=== PATIENT | male | born 1965 | race Caucasian/White ===

== ENCOUNTER → 2017-07-24 10:58 | Day surgery (SDC) | payer BC | END | disposition home or self-care (01) | LOC: OR 10:58 | PROVIDERS: ATTEND Anesthesiology | DX: G97.1 Other reaction to spinal and lumbar puncture (principal) | CPT/HCPCS: 62273 ==

== ENCOUNTER 2017-09-23 06:08 | Observation (INO) | payer BC ==
[~2017-09-23 06:08] MED LIST: Buffered Lidocaine 0.9% SYRIN* 5 ML/SYR SYRINGE INTRADERM ONE; Famotidine TAB* 20 MG PO ONE
[2017-09-23] MEDS ORDERED: ceFAZolin 2 GM PREMIX (*) 2 GM/50 ML BAG IVPB ONE (06:41)
[2017-09-23] MEDS ORDERED: Famotidine TAB* 20 MG ONE (06:41)
[2017-09-23] MEDS ORDERED: Lidocaine 1% MPF wEPI 200,000* 30 ML SDV ONE (06:54)
[2017-09-23] MEDS ORDERED: Thrombin 5,000 UNITS* 1 APPLIC KIT - topical use - TOPICAL ONE (06:54)
[2017-09-23] MEDS ORDERED: Bacitracin IV* 50,000 UNITS INJ ONE (06:54)
[2017-09-23] MEDS ORDERED: Artificial Tear OPHTH.OINT* 3.5 GM ONE (07:10)
[2017-09-23] MEDS ORDERED: Ondansetron INJ* 2 MG/ML VIAL ONE (07:10)
[2017-09-23] MEDS ORDERED: Phenylephrine INJ* 10 MG/ML 1 ML VIAL (10 MG) ONE (07:10)
[2017-09-23] MEDS ORDERED: Lidocaine 2% PF * 5 ML VIAL ONE (07:10)
[2017-09-23] MEDS ORDERED: Dexamethasone IV* 4 MG/ML 1 ML (4 MG) ONE (07:10)
[2017-09-23] MEDS ORDERED: Midazolam* 1 MG/ML 5 ML VIAL (5 MG) ONE (07:10)
[2017-09-23] MEDS ORDERED: Propofol* 10 MG/ML 20 ML BTL IV PUSH ONE (07:10)
[2017-09-23] MEDS ORDERED: fentaNYL* 50 MCG/ML 5 ML VIAL (250 MCG VIAL) ONE (07:10)
[2017-09-23] MEDS ORDERED: Cisatracurium* 2 MG/ML MDV 5 ML ONE (07:10)
[2017-09-23] MEDS ORDERED: EPHEDrine (Pressors)* 50 MG/ML VIAL ONE (08:05)
[2017-09-23] MEDS ORDERED: fentaNYL* 50 MCG/ML 2 ML VIAL (100 MCG VIAL) IV PRN (08:31)
[2017-09-23] MEDS ORDERED: Naloxone* 0.4 MG/ML 1 ML VIAL IV PRN (08:31)
[2017-09-23] MEDS ORDERED: DiMENhydriNATE IV* 50 MG/ML VIAL IV PUSH PRN (08:32)
[2017-09-23] MEDS ORDERED: fentaNYL* 50 MCG/ML 2 ML VIAL (100 MCG VIAL) ONE (09:53)
[2017-09-23] MEDS ORDERED: Acetaminophen TAB* 325 MG PO PRN (09:57)
[2017-09-23] MEDS ORDERED: Magnesium Hydroxide LIQ* 30 ML UDC PO PRN (09:57)
[2017-09-23] MEDS ORDERED: Ondansetron 40 MG VIAL* 2 MG/ML 20 ML VIAL IV PRN (09:57)
--- NOTE | 2017-09-23 11:12 | RAD ---
INDICATION: Chronic neck pain TECHNIQUE: A single crosstable lateral view of the cervical spine was obtained. FINDINGS: A single crosstable lateral view of the cervical spine shows a retractor at the C5/C6 level and surgical instrument pointing at the level of the C5 vertebral body. IMPRESSION: As above
[2017-09-23] MEDS: HYDROcodone/ACETAMIN 5-325 MG* 1 TAB PO PRN ×3 (11:56→21:13)
[2017-09-23] MEDS ORDERED: Docusate CAP* 100 MG PO PRN (14:48)
[2017-09-23] MEDS ORDERED: Cetirizine* 10 MG TAB PO SCH (21:00)
[2017-09-23] MEDS: Oxybutynin TAB* 5 MG PO SCH (21:13)
[2017-09-24] MEDS: HYDROcodone/ACETAMIN 5-325 MG* 1 TAB PO PRN ×2 (05:40→10:44)
[2017-09-24] MEDS ORDERED: Citalopram TAB* 40 MG PO SCH (09:00)
[2017-09-24] MEDS ORDERED: Cyclobenzaprine TAB* 10 MG PO PRN (09:29)
--- NOTE | 2017-09-24 09:34 | PN ---
Progress Note - Progress Note Date of Service: 09/24/17 SOAP: Subjective: [S/p posterior cervical foraminotomy C5-6 right. Complains of posterior neck soreness and muscle spasm. Right hand numbness persistent. Denies nausea and headache. Eating and drinking well. Ambulating without difficulty.] Objective: [ Vital Signs: Temp Pulse Resp BP Pulse Ox 99.1 F 78 15 104/61 95 09/24/17 03:54 09/24/17 03:54 09/24/17 07:40 09/24/17 03:54 09/24/17 03:54 General: Alert and in no distress. Neuro: Motor and sensory intact. Extremities: Full ROM Incision: Intact with jai. No swelling. Wound drain discontinued Wound drain output 09/23/17 09/23/17 09/23/17 10:30 13:51 19:00 Output, VICKI #1 20 20 20 09/24/17 09/24/17 00:05 03:59 Output, VICKI #1 10 5 ] Assessment: [Satisfactory post-op.] Plan: [1. Discharge home today. 2. Discharge instructions discussed with the patient.]
[2017-09-24] MEDS: Oxybutynin TAB* 5 MG PO SCH (10:04)
[2017-09-24 10:14] VITALS: BP 107/56
--- NOTE | 2017-09-28 21:11 | OP ---
DATE OF OPERATION: 09/23/17 - ROOM #347 DATE OF : 67 SURGEON: Kota Acevedo MD [employer]: GENNY Lopez ANESTHESIA: General. PRE-OP DIAGNOSIS: Cervical spondylosis, C5-6, on the right. POST-OP DIAGNOSIS: Cervical spondylosis, C5-6, on the right. OPERATIVE PROCEDURE: Posterior cervical foraminotomy, C5-6, on the right with microdissection. DESCRIPTION OF PROCEDURE: After satisfactory general anesthesia was obtained, the patient was placed on the operating table in the prone position with the chest supported on the chest rolls and the head maintained with slight neck flexion utilizing a Fonseca head rest. The posterior cervical region was clipped, prepped, and draped in a sterile manner for posterior cervical exposure and a skin incision was outlined along the previous incision from C5 to C7. This incision was infiltrated with 1% Xylocaine with epinephrine after which it was turned down sharply to the level of the cervical fascia. The fascia and scar tissue was dissected from the posterior elements of C5 and C6. An intraoperative x-ray was obtained verifying proper interspace localization, after which the boundaries of a previous cervical exposure at this level were dissected free utilizing curettes. A more generous foraminotomy was then carried out by removing the inferior aspect of the C5 lamina and superior aspect of C6 lamina as well as the medial portion of the facet complex. The C6 nerve root was identified in its course. At this point of the surgery, the operating microscope was brought into the field and the remainder of the procedure done under microscopic visualization. Utilizing microdissection, epidural venous structures were coagulated and divided. A generous foraminotomy was then carried out over the C6 nerve root. This was carried out laterally until the nerve root was free in its course. After assuring adequate hemostasis, the wound was thoroughly irrigated after which a piece of Gelfoam was placed over the laminectomy defect. A drain was then placed in the prevertebral space and tunneled out toward the right side. The fascia was then reapproximated with 0 Vicryl suture, the subcutaneous tissue was closed with 3- 0 Vicryl, and skin closed with skin clips. The estimated blood loss was less than 50 cc and final sponge, padding, and needle counts were correct. The patient was taken to the recovery room extubated and in stable condition. [id number]/[facility] #: [id number] BALAJI
--- NOTE | 2017-10-11 08:56 | DS ---
DISCHARGE SUMMARY: DATE OF ADMISSION: 09/23/17 DATE OF DISCHARGE: 09/24/17 ATTENDING PHYSICIAN: Dr. Acevedo.* (DICTATED BY GENNY BRADSHAW) DISCHARGE DIAGNOSIS: Cervical spondylosis, C5-6. SPECIAL PROCEDURE: Posterior cervical foraminotomy C5-6 on the right. HOSPITAL COURSE: This 51-year-old male was seen in the office with right-sided cervical radiculopathy. He had a history of posterior foraminotomy at C5-6 on the right, after which he failed to improve. Imaging was updated and the patient decided to proceed with surgical treatment again. On the day of admission, he was taken to surgery where under general anesthesia, a posterior cervical foraminotomy at C5-6 on the right operation was carried out. Postoperatively, he was feeling well and the right upper extremity symptoms were improved. He was ambulating independently and he was eating, drinking, and voiding without difficulty. Pain was well controlled with oral pain medications. On the first post-operative day, the wound drain was discontinued and he was discharged home to the care of his family. DISCHARGE MEDICATIONS: 1. Cyclobenzaprine 10 mg 1 tab by mouth up to 3 times daily as needed for muscle spasms. 2. [place] 5/325 mg 1 to 2 tabs by mouth every 4 hours as needed for pain. FOLLOWUP: The patient will be seen in the office in approximately 2 weeks for followup and staple removal. DISCHARGE INSTRUCTIONS: Wound care and activity level were discussed with the patient and provided. GENNY BRADSHAW [id number]/[facility] #: [id number] [facility]
== END 2017-09-24 10:50 | disposition home or self-care (01) ==
LOC: OR 06:08 → SSU 11:05
PROVIDERS: ADMIT Neurological Surgery; ATTEND Neurological Surgery
DX: M47.22 Other spondylosis with radiculopathy, cervical region (principal)
CPT/HCPCS: 72020; A9270-GY; G0378; J0690; J1100; J2001; J2250; J2405; J2704; J3010

== ENCOUNTER 2019-10-26 06:16 | Observation (INO) ==
[~2019-10-26 06:16] MED LIST changes: -Buffered Lidocaine 0.9% SYRIN* 5 ML/SYR SYRINGE INTRADERM ONE; +Famotidine IV 10 MG/ML 2 ml VIAL (20 mg) IV ONE; -Famotidine TAB* 20 MG PO ONE; +Lactated Ringers 1000 ml BAG 1,000 ML IV SCH
[2019-10-26] MEDS ORDERED: Bacitracin INJECTION 50,000 UNITS ONE (06:48)
[2019-10-26] MEDS ORDERED: Lidocaine 1% w EPI 1:200,000 SDV 30 ML VIAL ONE (06:48)
[2019-10-26] MEDS ORDERED: ceFAZolin 2 GM PREMIX in ORs 2 GM/50 ML BAG ONE (06:51)
[2019-10-26] MEDS ORDERED: Famotidine IV 10 MG/ML 2 ml VIAL (20 mg) ONE (06:51)
[2019-10-26] MEDS ORDERED: Midazolam 5 mg/5 ml VIAL 1 mg/ml 5 ml VIAL (5 mg) ONE (07:39)
[2019-10-26] MEDS ORDERED: fentaNYL 100 mcg/2 ml 50 MCG/ML VIAL ONE ×2 (07:47→08:41)
[2019-10-26] MEDS ORDERED: Rocuronium 50 mg VIAL 10 mg/ml 5 ml VIAL (50 mg) ONE (08:21)
[2019-10-26] MEDS ORDERED: Succinylcholine 200 mg VIAL 20 mg/ml 10 ml VIAL (200 mg) ONE (08:48)
[2019-10-26] MEDS ORDERED: Dexamethasone IV 4 MG/ML VIAL 1 ml VIAL ONE (08:48)
[2019-10-26] MEDS ORDERED: Propofol 10 MG/ML 20 ML BTL ONE ×3 (08:48→10:22)
[2019-10-26] MEDS ORDERED: DiMENhydriNATE IV 50 mg/ml 1 ml VIAL ONE (08:48)
[2019-10-26] MEDS ORDERED: Phenylephrine 40 mcg/mL 10mL (400mcg) SYRINGE ONE (08:48)
[2019-10-26] MEDS ORDERED: Lidocaine 2% PF 5 ML VIAL ONE (08:48)
[2019-10-26] MEDS ORDERED: Ondansetron 4 mg VIAL 2 MG/ML 2 ml VIAL ONE (08:48)
[2019-10-26] MEDS ORDERED: Propofol 1,000 MG/100 ML BTL ONE (08:59)
[2019-10-26] MEDS ORDERED: DiMENhydriNATE IV 50 mg/ml 1 ml VIAL IV PUSH PRN (09:15)
[2019-10-26] MEDS ORDERED: Naloxone 0.4 mg VIAL 0.4 mg/ml 1 ml VIAL IV PRN (09:15)
[2019-10-26] MEDS ORDERED: Acetaminophen IV 1 GM/100ML 100 ML ONE (09:47)
[2019-10-26] MEDS ORDERED: HYDROcodone/ACETAMIN 5/325 mg TAB PO PRN ×3 (11:25→19:58)
[2019-10-26] MEDS ORDERED: HYDROmorphone 1 MG/1 ML SYRINGE ONE ×2 (11:28→14:07)
[2019-10-26] MEDS: HYDROmorphone 1 MG/1 ML SYRINGE IV PRN ×5 (11:29→12:06)
[2019-10-26] MEDS ORDERED: HYDROcodone/ACETAMIN 5/325 mg TAB ONE (12:10)
[2019-10-26] MEDS: Magnesium Hydroxide LIQ 30 ML UDC PO PRN (22:22)
[2019-10-27] MEDS: HYDROmorphone 1 MG/1 ML SYRINGE IV PRN ×2 (00:10→04:17)
[2019-10-27] MEDS: Magnesium Hydroxide LIQ 30 ML UDC PO PRN (09:25)
[2019-10-27 20:45] VITALS: BP 118/35
== END 2019-10-27 21:00 | disposition home or self-care (01) ==
LOC: SSU 06:16 → OR 06:16 → EDSTATUS 07:30
PROVIDERS: ADMIT Neurological Surgery; ATTEND Internal Medicine